=== PATIENT | male | born 1970 | race Caucasian/White ===

== ENCOUNTER 2017-08-12 05:42 | Emergency (ER) | payer OTHER ==
[~2017-08-12] VITALS: Ht 177.8 cm; Wt 86.2 kg
[~2017-08-12 05:42] MED LIST: CIPROFLOXACIN500 M1 PO; IBUPROFEN 800800 M1 PO; KEFLEX500 MG PO; MEDROLDOSEPACK PO; NAPROSYN500 MG PO; NOHOMEMEDICATIONS; ROBAXIN500 MG PO
[2017-08-12] MEDS ORDERED: IBUPROFEN 600600 M1 PO (05:52)
[2017-08-12] MEDS ORDERED: LIORESAL 10 MG10 MG PO (06:12)
[2017-08-12] MEDS ORDERED: IBUPROFEN 800800 MG PO (06:12)
[2017-08-12] MEDS ORDERED: FLEXERIL PO (06:12)
[2017-08-12 06:28] VITALS: BP 154/98
== END 2017-08-12 06:30 | disposition home or self-care (01) ==
LOC: M.ERS 05:42
DX: M54.5 Low back pain (principal)

== ENCOUNTER 2019-02-27 21:43 | Emergency (ER) | payer MEDICAID ==
[~2019-02-27] VITALS: Ht 182.9 cm; Wt 72.6 kg
[~2019-02-27 21:43] MED LIST changes: +FLEXERIL PO; +IBUPROFEN 600600 M1 PO; +IBUPROFEN 800800 MG PO; +LIORESAL 10 MG10 MG PO
[2019-02-27] MEDS ORDERED: DESYREL150 MG PO (21:54)
[2019-02-27 22:41] VITALS: BP 125/80
== END 2019-02-27 22:42 | disposition home or self-care (01) ==
LOC: M.ERS 21:43
DX: M54.5 Low back pain (principal)